=== PATIENT | male | born 1980 | race Caucasian/White ===

== ENCOUNTER 2017-01-25 06:39 | Day surgery (SDC) | payer OTHER ==
[~2017-01-25] VITALS: Ht 182.9 cm; Wt 127.7 kg
[~2017-01-25 06:39] MED LIST: CORE25TA PO
[2017-01-25 07:10] VITALS: BP 128/77; PULSE 87; RESP 16; TEMP 98.5; O2SAT 97
[2017-01-25] MEDS ORDERED: OMEP20TA PO (07:10)
[2017-01-25] MEDS ORDERED: CITA10TA4 PO (07:10)
[2017-01-25] MEDS ORDERED: IBUP800T23 PO (07:10)
[2017-01-25] MEDS ORDERED: MULT1TAB46 (07:10)
[2017-01-25] MEDS ORDERED: METO100T PO (07:10)
[2017-01-25] MEDS ORDERED: NS 1000P @30 MLS/HR (KVO) IV SCH (07:15)
[2017-01-25] MEDS ORDERED: MIDAZOLAM HCL 2 MG/2 ML VIAL ONE (08:09)
[2017-01-25] MEDS ORDERED: HEPARIN-NS/PF INJ 500 ML ONE (08:09)
[2017-01-25] MEDS ORDERED: MISC INFORMATION XX ONE (08:45)
[2017-01-25] MEDS ORDERED: ONDANSETRON HCL 4 MG/2 ML VIAL IV PRN (08:45)
[2017-01-25] MEDS ORDERED: ATROPINE SULFATE 1 MG/ML VIAL IV PRN (08:45)
[2017-01-25] MEDS ORDERED: SODIUM CHLOR 0.9% 250 ML INJ 250 ML IV PRN (08:45)
--- NOTE | 2017-01-25 08:46 | CATHPROC ---
Viptable HIS Report Study Information Study Number Admission Scheduled Start Study Start [id number] Jan 25 2017 6:39AM 01/25/2017 Jan 25 2017 7:57AM Study Type Friend Service Left/Possible PCI Cardiac Catheterization Admit Source Facility Department Other [facility] - [facility]/Ste[facility] Room Physician and Clinical Staff Initial Parker Villagomez Airplane Rental Clerk Yelean Willett RN Recorder Laverne Ramos,FRONT END SOFTWARE DEVELOPER TECH2 Scrub Carmen Da Silva,RT(R) Procedures Performed Procedure Location (Site) Vessel Name Coronary Angiograms LCA Left Coronary Coronary Angiograms RCA Right Coronary Equipment Time Business Analysis Consultant Description Size Mfg Part Number Used/Scraped TRANSDUCER, TRUWAVE [id number] 08:18 TREVIÑO IWLLETT * Used W/STOCKCOCK *[id number] *[id number] *[id number] *[id number] 08:34 DAIG/[employer] MEDICAL ANGIOSEAL, FR6 VIP FR 6 Used *[id number] 08:18 MEDLINE IND[employer]ES PACK, CCL CUSTOM * Used *[id number] 08:18 HOSTEX PACER PEN, SKIN DUAL W/ RULER * Used *[id number] 08:18 [email or web address] MEDICAL SHEATH, FR6.5 PRELUDE 11CM FR 6.5 038ACT Used *[id number] 08:18 [email or web address] MEDICAL WIRE, 3MMJ .035 180CM 180CM Used *[id number] 08:18 NAMIC MANIFOLD, 4 PORT * Used *[id number] 08:18 NYCOMED OMNIPAQUE, 350 MG, 100ML 100ML [id number] Used [id number] 08:18 DREW MEDICAL BLANKET,WARM AIR CCL * Used *[id number] Equipment Model, Serial, Lot Number and Expiration Data Description Model Number Serial Number Lot Number Expiration Date ANGIOSEAL, FR6 VIP [id number] 09-13-2017 History: Current Medications Medication Dosage/Unit Route Frequency Last Date/Time Taken LOPRESSOR Prilosec History: Allergies Allergy Reaction NKDA History: Risk Factors Family History of Hypertension Dyslipidemia Previous NV Previous Heart Failure Premature CAD No Yes No No No Prior Valve Prior PCI Prior CABG Surgery No No No Cerebrovascular Peripheral Artery Chronic Lung On Dialysis Diabetes Disease Disease Disease No No No No No History: Symptoms/Diagnosis Selection Items Chest pain Palpitations History: Stress Tests Stress or Imaging Studies Performed Yes Standard Exercise Stress Test No Stress Echo No Stress Test SPECT Stress Test SPECT Result Stress Test SPECT Ischemia Risk/Extent Yes Positive High Stress Test CMR No Cardiac CTA Coronary Calcium Score No No History: Arrhythmias Selection Items Supraventricular History: Other Current Smoker No Labs Hgb (g/dl) Hct (%) WBC (l/cumm) Platelets (thousands) 11.60-17.00 35.00-51.00 4.00-11.00 150.00-450.00 15.5 48.9 6.9 12.8 Glucose (mg/dl) BUN (mg/dl) Creatinine (mg/dl) BUN:Creatinine (1:x) 74.00-106.00 7.00-18.00 0.50-1.30 10.00-20.00 98 17 1.1 15.5 Na (meq/l) K (meq/l) 136.00-145.00 3.50-5.10 143 4.9 INR (PTT:PT) 0.90-1.10 1 CPK-MB (ng/ML) 0.50-3.60 Not Drawn Medication Medication Total Dose (Bolus/Oral) Medication Total Dosage/Unit 1% XYLOCAINE 20 mL VERSED 2 mg Medications (Bolus/Oral) Medication Time Given Dosage/Unit Administered By Reason VERSED 01/25/2017 8:23:19 AM 2 mg Yelena Willett 2 mg VERSED given in lab by Yelena Willett RN in Left Antecubital via Peripheral IV. Ordered by Parker Kenney. 1% XYLOCAINE 01/25/2017 8:24:38 AM 20 mL Parker Coon 20 mL 1% XYLOCAINE given in lab by Parker Coon in Right Groin via Subcutaneous. Ordered by Parker Kelley ms. Medication (Drip) Medication Time Given Dosage/Unit Concentration/Unit Diluent (ml) Solution IV Solutions 01/25/2017 8:04:39 AM 0 mL (IV) 500 NaCl .9 Patient arrived on IV Solutions in Left Antecubital via Peripheral IV. Pump/Drip Flow = 20 ml/hr usin g NaCl .9. Initial Case Assessment Cardiovascular HR Rhythm NIBP Chest Pain 83 sr 120/77 0 Edema Present Skin color Skin None Normal Warm Dry Circulatory - Right Pulses Dorsalis Pedis Femoral 2 2 Scale (0,1,2,3,4,d) Circulatory - Left Pulses Dorsalis Pedis Femoral 2 2 Scale (0,1,2,3,4,d) Neurological State Oriented to time-place- Alert Moves all extremities person Respiration - General Respiration Rate SpO2 (%) (B/min) 10 98 Final Case Assessment Cardiovascular HR Rhythm NIBP Chest Pain 78 sr 116/75 0 Circulatory - Right Pulses Dorsalis Pedis Femoral 2 2 Scale (0,1,2,3,4,d) Circulatory - Left Pulses Dorsalis Pedis Femoral 2 2 Scale (0,1,2,3,4,d) Neurological State Oriented to time-place- Alert Moves all extremities person Respiration - General Respiration Rate SpO2 (%) (B/min) 20 96 Chronological Log Time Study Chronological Log 8:00:36 Patient arrived via Bed. 8:00:42 Patient Name, D.O.B, / Armband Verified By R.N. 8:03:47 Consent signed by the physician and the patient and verified by the Steward/Stewardess Room staff. 8:03:51 Pre-op and post- op instructions given; patient acknowledges understanding of instructions. 8:03:52 Verbal Stimulation=2 Physical Stimulation=2 Airway=2 Respiration=2 TOTAL=8. (0=absent, 1=jha ited, 2=present) 8:04:20 Presedation assessment performed by Steward/Stewardess Room RN. 8:04:22 Patient has been NPO for More than 6Hrs. 8:04:23 Skin Breakdown-none 8:04:24 Marycarmen Prominences Protected 8:04:28 A # 20 IV was noted in the Antecubital (left). Grade = 0 8:04:39 Patient arrived on IV Solutions in Left Antecubital via Peripheral IV. Pump/Drip Flow = 20 m l/hr using NaCl .9. 8:04:57 History and physical on the chart or being dictated. Vitals capture started with the following parameters, Patient=Adult, Interval=5 min, Initial Pre zlxqu=658 mmHg, 8:05:02 Deflation Rate=5 mmHg 8:05:36 HR=92 bpm, FOUR=004/77 mmhg, SpO2=98.0 %, Resp=8 B/min, Pain=0, Andrew=10, Fatima=2 Assessment: Initial Case, HR=83 BPM, Rhythm=sr, ALVS=587/77 mmhg, Chest Pain=0, Edema=None, [place] r=Normal, Skin = Warm, Dry Right Pulses: Anthony Ped=2, Femoral=2 8:08:09 Left Pulses: Anthony Ped=2, Femoral=2 Neurological: State=Alert, Ox3, ROMAN Respiration: Resp=10 B/min, SpO2=98 % 8:08:23 Reference ECG taken 8:10:35 HR=87 bpm, NYWG=257/68 mmhg, SpO2=99.0 %, Resp=17 B/min 8:15:38 HR=91 bpm, FVSA=914/70 mmhg, SpO2=98.0 %, Resp=23 B/min 8:16:55 Bilateral groins prepped with 2% chlorhexidine, and draped after a 3 min. waiting time. 8:20:35 HR=76 bpm, CTZO=542/71 mmhg, SpO2=98.0 %, Resp=16 B/min 8:20:48 MD arrived. 8:23:19 2 mg VERSED given in lab by Yelena Willett RN in Left Antecubital via Peripheral IV. Ord ered by Parker Coon. Time Out. Correct patient, correct procedure,correct physician, ,power injector loaded or not lo aded with contrast with 8:24:15 surgical team present. Time Out Concurred by MD, individual staff and SHALE PLANER OPERATOR HELPER in procedure 8:24:31 Pressure channel 1 zeroed. 8:24:35 Case Start 8:24:38 20 mL 1% XYLOCAINE given in lab by Parker Coon in Right Groin via Subcutaneous. Ordered by Parker Coon. 8:25:36 HR=75 bpm, VPZU=592/67 mmhg, SpO2=98.0 %, Resp=24 B/min, Andrew=10 8:27:31 Access site was Right Femoral Artery. 8:27:39 A SHEATH, FR6.5 PRELUDE 11CM FR 6.5 was advanced into the Fem Art (right) using the Percutan eous technique. A JL 4.0 INFINITI CATHETER FR 6 was advanced over a wire. OMNIPAQUE, 350 MG, 100ML 100ML was use d for 8:28:47 injections. Recorded Pressure: Ao, HR=73, Condition=Condition 1 8:29:24 (Aorta) Ao 106/73/88 8:30:02 The LCA was injected and visualized at various angles. OMNIPAQUE, 350 MG, 100ML 100ML used. 8:30:37 HR=78 bpm, CLKD=260/69 mmhg, SpO2=95.0 %, Resp=21 B/min, Pain=0, Andrew=10, Fatima=2 8:31:28 Catheter was removed A JR 4.0 INFINITI CATHETER FR 6 was advanced over a wire. OMNIPAQUE, 350 MG, 100ML 100ML was u sed for 8:31:32 injections. 8:32:25 The RCA was injected and visualized at various angles. OMNIPAQUE, 350 MG, 100ML 100ML use d. 8:32:37 Catheter was removed 8:34:49 An injection in the Fem Art (right) was made through the SHEATH, FR6.5 PRELUDE 11CM FR 6.5 . 8:35:01 ANGIOSEAL, FR6 VIP FR 6 placement in the Fem Art (right) 8:35:38 HR=81 bpm, EABY=969/75 mmhg, SpO2=95.0 %, Resp=26 B/min 8:37:30 Sterile dressing applied to site 8:37:32 No case complications noted. 8:37:35 Cine recording checked. Assessment: Final Case, HR=78 BPM, Rhythm=sr, AAMO=187/75 mmhg, Chest Pain=0 Right Pulses: Anthony Ped=2, Femoral=2 8:37:42 Left Pulses: Anthony Ped=2, Femoral=2 Neurological: State=Alert, Ox3, ROMAN Respiration: Resp=20 B/min, SpO2=96 % 8:38:42 Case End 8:45:00 Patient moved to bed 8:45:08 Bedside Report will be given. 8:46:11 Patient transported to DOCU. End Study - Contrast Media Used In Study Contrast Total Opened (mL) Total Used (mL) Total Wasted (mL) Omnipaque 60 60 0 End Study - Maximum Contrast Load Max Contrast Load (mL) 580.4 End Study - Radiation Exposure Fluoro Time (minutes) 1.2 End Study - Sheaths Sheaths Pulled By Sheath Hold Time (min) Parker Coon End Study - Patient Disposition Complications Transferred To No Telemetry Bed
--- NOTE | 2017-01-25 09:32 | MA ---
cc: PARKER COON MD DATE: 01/25/2017 PROCEDURE Cardiac catheterization. PROCEDURAL STATEMENTS The patient was prepped and draped in a usual fashion. A 6 sheath was inserted percutaneously into the right femoral artery. Coronary angiography was done with Willard preformed catheters. At the end of procedure the groin was sealed with Angio-Seal. RESULTS The left main coronary was normal. The left anterior descending artery was normal throughout its course. The left circumflex artery was normal throughout its course. The right coronary was anatomically dominant and normal throughout its course. CONCLUSIONS Normal coronary arteries. Parker Coon MD DLW/BT /9:00 AM /9:29 AM
[2017-01-25] MEDS ORDERED: IOHEXOL 350 MG/ML 100 ML BTL (for Cath Lab) OTHER ONE (09:34)
== END 2017-01-25 11:24 | disposition home or self-care (01) ==
LOC: HDOC 06:39 → HDIC 06:40 → HDOC 11:24
PROVIDERS: ATTEND Internal Medicine Cardiovascular Disease
DX: R07.89 Other chest pain (principal); I47.1 Supraventricular tachycardia; I51.7 Cardiomegaly; R00.2 Palpitations; J22 Unspecified acute lower respiratory infection; R53.83 Other fatigue; R20.2 Paresthesia of skin; E78.5 Hyperlipidemia, unspecified; R06.83 Snoring
CPT/HCPCS: 93454; C1760; C1769; C1893; G0269; J1644; J2250; Q9967

== ENCOUNTER → 2017-09-29 | Outpatient (CLI) | payer OTHER ==
[~2017-09-29] MED LIST changes: +CITA10TA4 PO; -CORE25TA PO; +IBUP1TAB7 PO; +METO100T PO; +MULT1TAB46; +OMEP20TA93 PO
[2017-09-29 08:16] LABS: WET PREP SPERM 0-3 NON-MOTILE /HPF (NONE SEEN)
== END ==
LOC: CLAB 07:39
DX: Z98.52 Vasectomy status (principal)
CPT/HCPCS: 89321